=== PATIENT | female | born 1990 | race African-American/Black ===

== ENCOUNTER 2022-07-19 09:29 | Emergency (ER) | payer MEDICAID ==
[~2022-07-19] VITALS: Ht 172.7 cm; Wt 98.0 kg
[2022-07-19 09:37] VITALS: BP 128/78
[2022-07-19] MEDS ORDERED: HYDROCODONE/ACETAMINOPHEN 7.5/325MG TABLET PO ONE (11:00)
[2022-07-19 13:57] LABS: CLARITY URINE CLEAR (CLEAR); COLOR URINE YELLOW (YELLOW); KETONES URINE NEGATIVE (NEGATIVE); LEUKOCYTE ESTERASE URINE NEGATIVE (NEGATIVE); NITRITE URINE NEGATIVE (NEGATIVE); OCCULT BLOOD URINE NEGATIVE (NEGATIVE); PH URINE 7.5 (4.5-8.0); PROTEIN URINE NEGATIVE (NEGATIVE)
[2022-07-19] MEDS ORDERED: IBUPROFEN 600MG TABLET PO ONE (15:30)
[2022-07-19] MEDS ORDERED: IBUP-2030 MT (16:07)
[2022-07-19] MEDS ORDERED: CYCL5TAB MT (16:07)
== END 2022-07-19 17:21 | disposition home or self-care (01) ==
LOC: ER 09:42
DX: S39.012A Strain of muscle, fascia and tendon of lower back, initial encounter (principal); Y08.89XA Assault by other specified means, initial encounter; Y93.89 Activity, other specified; Y92.89 Other specified places as the place of occurrence of the external cause; Y99.8 Other external cause status
CPT/HCPCS: 72110; 81003; 81025; 99284; Z7610